=== PATIENT | female | born 1965 | race Hispanic/Latino ===

== ENCOUNTER → 2017-09-13 | Outpatient (CLI) | payer BC | LOC: RAD 08:40 | PROVIDERS: ATTEND Family Medicine | DX: I82.409 Acute embolism and thrombosis of unspecified deep veins of unspecified lower extremity (principal) | CPT/HCPCS: 93971 ==

== ENCOUNTER → 2017-11-09 | Outpatient (CLI) | payer BC | LOC: US 07:36 | PROVIDERS: ATTEND Family Medicine | DX: R10.11 Right upper quadrant pain (principal) | CPT/HCPCS: 76705 ==